=== PATIENT | female | born 1975 | race Caucasian/White ===

== ENCOUNTER 2017-03-21 12:59 | Emergency (ER) | payer BC ==
[2017-03-21 13:07] VITALS: BP 115/76
[2017-03-21] MEDS ORDERED: Acetaminophen/HYDROcodone 325-5 MG Tab PO ONE (13:40)
--- NOTE | 2017-03-21 13:48 | EDM.PDOC ---
ED HPI GENERAL MEDICAL PROBLEM - General Chief Complaint: Lower Extremity Injury/Pain Stated Complaint: ankle injury Time Seen by Provider: 03/21/17 13:30 Source of Information: Reports: Patient History Limitations: Reports: No Limitations - History of Present Illness INITIAL COMMENTS - FREE TEXT/NARRATIVE: Patient is a 41-year-old female that [place]. Patient states she felt a pop to her right ankle. Complains of right ankle pain with swelling. 911 was called and ambulance transported patient to the ED. She has pain with palpation of the distal aspect of the right fibula. She has no prior injury. No sensory deficits distally. Denies any pain to her knee, upper leg, or hip. She denies hitting her head nor complains of neck or back pain. She has taken 800 mg of Advil prior to arrival to the ED. Pain is currently a 5 out of 10. Right Ankle Pain Score (Numeric/FACES): 2 - Related Data Allergies Allergy/AdvReac Type Severity Reaction Status Date / Time No Known Allergies Allergy Verified 03/21/17 13:03 Home Meds: Home Meds Acetaminophen/HYDROcodone [Gamerco 325-5 MG] 1 tab PO Q6H PRN #15 tablet 03/21/17 [Rx] Singulair. 03/21/17 [History] Zyrtec. 03/21/17 [History] Past Medical History HEENT History: Reports: Other (See Below) Other HEENT History: seasonal allergies Social & Family History - Tobacco Use Smoking Status *Q: Never Smoker Review of Systems - Review of Systems Review Of Systems: See Below Musculoskeletal: Reports: Joint Pain (Right ankle), Joint Swelling (Right ankle) Skin: Denies: Bruising, Erythema, Wound ED EXAM, GENERAL - Physical Exam Exam: See Below Exam Limited By: No Limitations General Appearance: Alert, WD/WN, No Apparent Distress Ears: Hearing Grossly Normal Nose: Normal Inspection Throat/Mouth: Normal Voice, No Airway Compromise Neck: Normal Inspection, Supple Respiratory/Chest: No Respiratory Distress, No Accessory Muscle Use Cardiovascular: Normal Peripheral Pulses, Regular Rate, Rhythm Peripheral Pulses: 2+: Radial (R) Back Exam: Normal Inspection, Full Range of Motion Extremities: Other (Swelling noted to the lateral last with of the right ankle. Increasing pain with palpation of the distal fibula. No pain with palpation the proximal lower leg. No pain with palpation of the knee, upper leg, or hip. No pain to the foot. No sensation deficits noted.) Neurological: Alert, Oriented, CN II-XII Intact, Normal Cognition Psychiatric: Normal Affect, Normal Mood Skin Exam: Warm, Dry, Intact, Normal Color ED TRAUMA EXTREMITY PROCEDURES - Splinting Right Lower Extremity Pre-Procedure NV Status: Normal Post-Procedure NV Status: Normal Splint Material: Fiberglass Splint Design: Posterior Applied & Form Fitted By: Provider, Nurse Provider Post-Splint Application NV Check: NV Status Normal, Good Position Complications: No Course - Vital Signs Last Recorded V/S: Last Vital Signs Temp 97.3 F 03/21/17 13:04 Pulse 70 03/21/17 13:04 Resp 16 03/21/17 13:04 BP 115/76 03/21/17 13:04 Pulse Ox 100 03/21/17 13:04 - Orders/Labs/Meds Orders: Active Orders 24 hr Category Date Time Status Ankle Min 3V Rt [CR] Stat Exams 03/21/17 13:19 Taken DME for Discharge [COMM] Stat Oth 03/21/17 14:59 Ordered Meds: Medications Discontinued Medications Generic Name Dose Route Start Last Admin Trade Name Freq PRN Reason Stop Dose Admin Hydrocodone Bitart/Acetaminophen 1 tab 03/21/17 13:40 03/21/17 13:48 Gamerco 325-5 Mg PO 03/21/17 13:41 1 tab ONETIME ONE Administration - Re-Assessments/Exams Free Text/Narrative Re-Assessment/Exam: X-ray of the right ankle was obtained revealing a spiral fracture to the distal aspect of the right fibula. No other obvious acute bony abdomen eyes noted. Currently the pain is a 5 out of 10. Ordered Gamerco one tab by mouth. Will clean leg prior to splinting. Posterior splint applied with no complications. Discharged home with instructions as documented. Departure - Departure Time of Disposition: 15:21 Disposition: Home, Self-Care 01 Condition: Good Clinical Impression: Fracture of fibula, distal, right, closed Qualifiers: Encounter type: initial encounter Fracture morphology: other fracture Qualified Code(s): S82.831A - Other fracture of upper and lower end of right fibula, initial encounter for closed fracture - Discharge Information Prescriptions: Acetaminophen/HYDROcodone [Gamerco 325-5 MG] 1 tab PO Q6H PRN #15 tablet PRN Reason: Pain (Severe 7-10) Instructions: Crutch Use, [id number], Fibular Ankle Fracture Treated With or Without Immobilization, Adult, Pain Medicine Instructions, [id number] Referrals: PCP,Not In Area [Primary Care Provider] - Forms: ED Department Discharge Additional Instructions: As discussed xray revealed fracture of the distal aspect of the right fibula. Splint was applied. Do not get the splint wet. Elevate when able to reduce swelling and pain. Take ibuprofen 600 mg every 6 hours and Tylenol 650 mg every 6 hours in alternating form. Apply ice to the affected area 6 times daily, 20 minutes in duration, do not apply ice directly on the skin. Utilize crutches to ambulate. You are to be nonweightbearing. Follow-up with orthopedic surgeon in the next 7 days once return home. Call and make an appointment today. For severe pain take Gamerco one tab every 6 hours. Do not take Tylenol and Gamerco together. No driving due to sedative side effects of this medication. Return to the ED as needed for any new or worsening symptoms. - My Orders Last 24 Hours: My Active Orders 03/21/17 13:19 Ankle Min 3V Rt [CR] Stat 03/21/17 14:59 DME for Discharge [COMM] Stat - Assessment/Plan Last 24 Hours: My Active Orders 03/21/17 13:19 Ankle Min 3V Rt [CR] Stat 03/21/17 14:59 DME for Discharge [COMM] Stat
--- NOTE | 2017-03-22 09:31 | CR ---
Right ankle: Four views of the right ankle were obtained. Mildly displaced distal fibular fracture is seen through the lateral malleolus. No additional fracture is appreciated. Soft tissue swelling is present. Incidental plantar spur is seen. Impression: 1. Slightly displaced distal fibular fracture. 2. Soft tissue swelling and other incidental findings. Diagnostic code #3
== END 2017-03-21 15:35 | disposition home or self-care (01) ==
LOC: JD.ED 12:59
DX: S82.831A Other fracture of upper and lower end of right fibula, initial encounter for closed fracture (principal); W01.0XXA Fall on same level from slipping, tripping and stumbling without subsequent striking against object, initial encounter; Y93.01 Activity, walking, marching and hiking; Y92.89 Other specified places as the place of occurrence of the external cause
CPT/HCPCS: 29515; 73610; 99284; A9270; 99283-25